=== PATIENT | female | born 2000 | race Caucasian/White ===

== ENCOUNTER 2021-02-05 16:42 | Emergency (ER) | payer MEDICAID ==
[~2021-02-05] VITALS: Ht 160 cm; Wt 80.3 kg
[2021-02-05 17:02] VITALS: BP 111/75
[2021-02-05 17:54] LABS: BASOPHILS # (AUTO) 0.1 X10'3 (0-0.2); BASOPHILS % (AUTO) 0.3 % (0-1); EOSINOPHILS % (AUTO) 0.3 % (0-6); HEMATOCRIT 40.7 % (35.0-45.0); HEMOGLOBIN 13.7 g/dl (12.0-16.0); LYMPHOCYTES # (AUTO) 2.5 X10'3 (1.1-4.8); LYMPHOCYTES % (AUTO) 16.7 % (21-51); MEAN CORPUSCULAR HEMOGLOBIN 27.4 PG (27.0-31.0); MEAN CORPUSCULAR HGB CONC 33.6 g/dL (33.0-36.5); MEAN CORPUSCULAR VOLUME 81.5 FL (78-98); MEAN PLATELET VOLUME 8.2 FL (7.4-10.4); MONOCYTES # (AUTO) 0.9 X10'3 (0-0.9); NEUTROPHILS # (AUTO) 11.6 X10'3 (1.8-7.7); NEUTROPHILS % (AUTO) 76.7 % (42-75); PLATELET COUNT 315 X10'3 (140-440); RED BLOOD COUNT 4.99 X10'6 (4.20-5.60); RED CELL DISTRIBUTION WIDTH 13.5 % (11.5-14.5); WHITE BLOOD COUNT 15.1 X10'3 (4.5-11.0)
[2021-02-05 18:05] LABS: URINE HCG NEGATIVE (NEG)
[2021-02-05 18:11] LABS: ALANINE AMINOTRANSFERASE 19 U/L (12-78); ALBUMIN/GLOBULIN RATIO 1.1 (1.1-1.5); ALKALINE PHOSPHATASE 85 IU/L (46-116); ANION GAP 11 (8-16); ASPARTATE AMINO TRANSFERASE 16 U/L (10-37); BILIRUBIN,TOTAL 0.3 MG/DL (0.1-1.0); BLOOD UREA NITROGEN 9 MG/DL (7-18); BUN/CREATININE RATIO 10.8 (6.6-38.0); CALCIUM 8.8 MG/DL (8.5-10.1); CHLORIDE 109 MMOL/L (99-107); CLARITY,URINE SLIGHTLY CLOUDY (Clear); COLOR,URINE AMBER (Yellow); CREATININE 0.83 MG/DL (0.40-0.90); GLUCOSE 97 MG/DL (70-104); GLUCOSE, URINE NEGATIVE (Neg); KETONES,URINE 15 mg/dl (Neg); LEUKOCYTE ESTERASE ,URINE TRACE (Neg); NITRITES, URINE NEGATIVE (Neg); OCCULT BLOOD,URINE LARGE (Neg); POTASSIUM 4.2 MMOL/L (3.5-5.1); PROTEIN,URINE 30 mg/dl (Neg); SODIUM 145 MMOL/L (135-145); TOTAL CARBON DIOXIDE 24.7 MMOL/L (24-32); TOTAL PROTEIN 7.5 G/DL (6.4-8.2); UA COLLECTION TYPE CLN CATCH MIDSTREAM; UROBILINOGEN,URINE 0.2 E.U/dL (0.2-1.0); eGFR 86 ML/MIN
[2021-02-05 18:16] LABS: URINE AMPHETAMINE SCREEN NEGATIVE (Neg); URINE BARBITUATE SCREEN NEGATIVE (Neg); URINE BENZODIAZEPINES SCREEN POSITIVE (Neg); URINE CANNABINOID SCREEN POSITIVE (Neg); URINE COCAINE SCREEN NEGATIVE (Neg); URINE METHADONE SCREEN NEGATIVE (Neg); URINE OPIATE SCREEN NEGATIVE (Neg); URINE PHENCYCLIDINE SCREEN NEGATIVE (Neg)
[2021-02-05 18:19] LABS: ETHANOL < 0.010 GM/DL (0.0-0.010)
[2021-02-05 18:24] LABS: BACTERIA,URINE 2+ /HPF (Neg); HYALINE CASTS 0-3 /LPF (NEGATIVE); MUCUS STRANDS MANY /LPF (Neg); RBC,URINE 0-2 /HPF (0-2); SQUAMOUS EPITHELIAL CELL,UR MANY /LPF (FEW); WBC,URINE 0-4 /HPF (0-4)
[2021-02-05] MEDS ORDERED: TETanus/Pertussis (Acell)/Diphther VAC/PF (Tdap-Adult) 0.5ml syringe IMVAC ONE (19:10)
[2021-02-05] MEDS ORDERED: LIDOcaine 1% W/epiNEPHrine 1:200,000 10ml vial IJ ONE (19:10)
--- NOTE | 2021-02-05 19:24 | NUR ---
PATIENT'S PACKET WAS SENT TO [facility].
[2021-02-05] MEDS ORDERED: BACL20TA PO (21:30)
[2021-02-05] MEDS ORDERED: PREG50CA PO (21:30)
[2021-02-05] MEDS ORDERED: DIAZ10TA4 PO (21:31)
[2021-02-05] MEDS ORDERED: TRAZ300T2 PO (21:31)
[2021-02-05] MEDS ORDERED: ILOP12TA2 PO (21:32)
[2021-02-05] MEDS ORDERED: HYDR-3686 PO (21:33)
[2021-02-05] MEDS ORDERED: hydrOXYzine 25 MG tablet PO PRN (22:15)
--- NOTE | 2021-02-05 22:21 | NUR ---
Patient expressed desire to leave to RN 30 minutes ago, stating she had appointment with her psychiatrist Sunday for medication change and did not need to stay here. RN discussed plan of care for medical clearance katie and halle by [facility]. Patient is amenable to this plan. Patient then seen at rear [employer] entrance stating she has called the police and that she is allowed to leave per police. Security summoned and patient escorted back to her room. Phone placed in belonging bag and patient is reassured by RN and is again amenable to staying in her room.
[2021-02-05] MEDS ORDERED: diazepam 5mg tablet PO ONE (22:30)
[2021-02-05] MEDS ORDERED: traZODone 150mg tablet PO ONE (22:30)
[2021-02-06] MEDS ORDERED: hydrOXYzine 25 MG tablet PO PRN (07:00)
--- NOTE | 2021-02-06 07:06 | NUR ---
Patientis awake, nausea without vomiting, lots of anxiety. Atarax order taken. AM med's will be given. This radio news writer just assumed care.
[2021-02-06] MEDS: pregabalin 25mg capsule PO SCH ×2 (07:18)
--- NOTE | 2021-02-06 07:27 | NUR ---
Patient exhibits anxiety but is cooperative. Patient complied with am medications including Atarax and Diazepam. Baclofen is not available at this time.
[2021-02-06] MEDS ORDERED: ILOPERIDONE PO SCH (08:00)
[2021-02-06] MEDS ORDERED: diazepam 5mg tablet PO SCH (08:00)
[2021-02-06] MEDS ORDERED: baclofen 10mg tablet PO SCH (08:00)
--- NOTE | 2021-02-06 08:44 | NUR ---
ANDRÉS is here interviewing the patient in her room
[2021-02-06] MEDS ORDERED: traZODone 150mg tablet PO SCH (21:00)
== END 2021-02-06 10:39 ==
LOC: ER 16:43
DX: S71.112A Laceration without foreign body, left thigh, initial encounter (principal); R45.851 Suicidal ideations; F32.9 Major depressive disorder, single episode, unspecified; Z20.3 Contact with and (suspected) exposure to rabies; Z88.8 Allergy status to other drugs, medicaments and biological substances; Z79.899 Other long term (current) drug therapy; X78.8XXA Intentional self-harm by other sharp object, initial encounter; Y93.89 Activity, other specified; Y92.89 Other specified places as the place of occurrence of the external cause; Y99.8 Other external cause status
CPT/HCPCS: 12002; 36415; 71045; 80053; 80305; 80320; 81001; 81025; 85025; 90471; 90715; 99285; Q0177